=== PATIENT | male | born 1985 | race Caucasian/White ===

== ENCOUNTER 2016-11-04 18:04 | Inpatient (IN) | payer OTHER ==
[~2016-11-04] VITALS: Ht 188 cm; Wt 87.6 kg
[~2016-11-04 18:04] MED LIST: LIBRIUM25 MG PO; THIAMINE HCL100 MG PO
[2016-11-04 18:44] LABS: CHLORIDE 107 mEq/L (99-109); POTASSIUM 4.1 mEq/L (3.7-5.4); SODIUM 145 mEq/L (136-147)
[2016-11-04 18:47] LABS: ANION GAP 18 MEQ/L (2-14)
[2016-11-04 18:49] LABS: SERUM ETHYL ALCOHOL < 10 mg/dL
[2016-11-04 18:50] LABS: GFR ESTIMATE (CALCULATED) 15 mL/min/; MCH 30.7 PG (29.0-34.0); MCHC 32.2 G/DL (30.0-36.0); MEAN PLAT.VOLUME 9.5 uM^3 (9.0-12.4); PLATELET COUNT 158 K/uL (156-360); RBC DIS.WIDTH-CV 12.8 % (11.8-14.6); RBC DIS.WIDTH-SD 43.3 % (39-53); RED BLOOD COUNT 5.25 M/uL (4.00-5.50); WHITE BLOOD COUNT 4.5 K/uL (4.1-10.2)
[2016-11-04 18:53] LABS: SALICYLATE < 5.0 MG/DL (15-30)
[2016-11-04 18:54] LABS: MCV 95.2 FL (86-99)
[2016-11-04 18:57] LABS: ADD MIUA? YES; BILIRUBIN SMALL; BLOOD LARGE; COLOR DK YELLOW ((YELLOW)); GLUCOSE (STRIP) NEGATIVE; KETONES TRACE; LEUKOCYTES NEGATIVE; NITRITE NEGATIVE; PROTEIN (STRIP) 30; SPECIFIC GRAVITY 1.028 (1.000-1.030); UROBILINOGEN 0.2 MG/DL (0.2-1.0)
[2016-11-04 19:04] LABS: GLUCOSE 70 mg/dL (70-99); UREA NITROGEN (BUN) 30 mg/dL (9-23)
[2016-11-04 19:36] LABS: CREATINE KINASE 17859 IU/L (1-294)
[2016-11-04 19:36] LABS: BACTERIA 1+; CASTS PRESENT /LPF; CRYSTALS NONE SEEN; EPITHELIAL CELLS 1+; FINE GRANULAR CASTS 0-5 /LPF; MUCUS 4+; UCUL ADDED? NO; WHITE BLOOD CELLS 0-5 /HPF (0-5)
[2016-11-04 20:04] LABS: ADD MEDTOX COMMENT Y; AMPHETAMINE NEGATIVE (500 ng/mL); BARBITURATES NEGATIVE (200 ng/mL); BENZODIAZEPINES PRESUMPTIVE POSITIVE (150 ng/mL); COCAINE PRESUMPTIVE POSITIVE (150 ng/mL); INTERNAL CONTROLS VALID? YES; METHADONE PRESUMPTIVE POSITIVE (200 ng/mL); METHAMPHETAMINE NEGATIVE (500 ng/mL); OPIATES (MORPHINE) NEGATIVE (100 ng/mL); OXYCODONE NEGATIVE (100 ng/mL); PHENCYCLIDINE NEGATIVE (25 ng/mL); PROPOXYPHENE NEGATIVE (300 ng/mL); THC CANNABINOIDS NEGATIVE (50 ng/mL); TRICYCLIC ANTIDEPRESSANTS NEGATIVE (300 ng/mL)
[2016-11-04 20:04] LABS: ALKALINE PHOSPHATASE 51 IU/L (3-129)
[2016-11-04 20:06] LABS: DIRECT BILIRUBIN 0.3 mg/dL (0.0-0.3)
[2016-11-04 20:11] LABS: TOTAL BILIRUBIN 0.9 mg/dL (0.0-1.0)
[2016-11-04 20:15] LABS: BASE EXCESS -8.3 mEq/L (-3 to +3); BICARBONATE 22.4 mEq/L (22-26); COMMENTS - BLOOD GASES A+C+; DEVICE 840; FI02 100 %; MECHANICAL RATE 12 resp/min; METHEMOGLOBIN 0.9 % (0-1.5); MODE A/C; PCO2 69 mm Hg (35-45); PEEP 5 CM/H20; PO2 72 mm Hg (80-100); SITE LR; TIDAL VOLUME 400 ML
[2016-11-04 20:16] LABS: pH 7.12 (7.35-7.45)
[2016-11-04 20:44] LABS: BENZODIAZEPINES, URINE SCREEN POSITIVE (200 ng/mL)
[2016-11-04 21:38] LABS: BASE EXCESS -6.8 mEq/L (-3 to +3); BICARBONATE 23.5 mEq/L (22-26); CARBOXY HGB 2.2 % (0-5); COMMENTS - BLOOD GASES A+C+; PCO2 69 mm Hg (35-45); PO2 45 mm Hg (80-100); SITE RR; pH 7.14 (7.35-7.45)
[2016-11-04 21:39] LABS: DEVICE VENT; FI02 80 %; MECHANICAL RATE 16 resp/min; MODE AC; PEEP 5 CM/H20; TIDAL VOLUME 400 ML; TOTAL RESP RATE 30 resp/min
[2016-11-05] VITALS (27 sets, daily range): BP systolic 94–142; BP diastolic 54–92
[2016-11-05 00:32] LABS: BICARBONATE 21.9 mEq/L (22-26); CARBOXY HGB 2.3 % (0-5); COMMENTS - BLOOD GASES C+A+; DEVICE VENTILATOR; FI02 100 %; METHEMOGLOBIN 1.3 % (0-1.5); PCO2 51 mm Hg (35-45); PO2 71 mm Hg (80-100); SITE RB
[2016-11-05 00:33] LABS: INSPIRATION TIME 0.6 seconds; MECHANICAL RATE 30 resp/min; MODE AC VC+; PEEP 10 CM/H20; TIDAL VOLUME 400 ML; TOTAL RESP RATE 37 resp/min; pH 7.24 (7.35-7.45)
[2016-11-05 00:56] LABS: HEMATOCRIT 43.4 % (38.0-50.0); MCH 31.2 PG (29.0-34.0); MCHC 33.2 G/DL (30.0-36.0); MCV 93.9 FL (86-99); RBC DIS.WIDTH-CV 12.7 % (11.8-14.6); RBC DIS.WIDTH-SD 42.4 % (39-53); RED BLOOD COUNT 4.62 M/uL (4.00-5.50); WHITE BLOOD COUNT 5.1 K/uL (4.1-10.2)
[2016-11-05 00:58] LABS: EOSINOPHIL (%) 0 % (0-5); IMMATURE GRANULOCYTE (%) 0.4 % (0.0-0.7); IMMATURE GRANULOCYTE COUNT 0.2 K/uL; LYMPHOCYTE COUNT 1.1 K/uL (1.0-2.8); MONOCYTE (%) 3.6 % (3-12); MONOCYTE COUNT 0.2 K/uL (0-0.8); NEUTROPHIL (%) 75.3 % (45-76); NEUTROPHIL COUNT 3.8 K/uL (1.8-6.4)
[2016-11-05 01:05] LABS: CHLORIDE 112 mEq/L (99-109); SODIUM 144 mEq/L (136-147)
[2016-11-05 01:06] LABS: MAGNESIUM 1.6 mg/dL (1.3-2.7)
[2016-11-05 01:07] LABS: GLUCOSE 75 mg/dL (70-99)
[2016-11-05 01:08] LABS: ANION GAP 12 MEQ/L (2-14)
[2016-11-05 01:10] LABS: POTASSIUM 5.1 mEq/L (3.7-5.4)
[2016-11-05 01:11] LABS: GFR ESTIMATE (CALCULATED) 19 mL/min/
[2016-11-05 01:12] LABS: UREA NITROGEN (BUN) 32 mg/dL (9-23)
[2016-11-05 01:42] LABS: METH RESISTANT S AUREUS PCR NEGATIVE (NEGATIVE)
[2016-11-05 01:46] LABS: PROBE CHECK PASS; SPECIMEN PROCESSING CONTROL PASS
[2016-11-05 02:03] LABS: CREATINE KINASE 38419 IU/L (1-294)
[2016-11-05 02:15] LABS: USER ID SLU
[2016-11-05 02:17] LABS: PLATELET COUNT UNABLE TO REPORT K/uL (156-360)
[2016-11-05 05:47] LABS: HEMATOCRIT 43.3 % (38.0-50.0); MCH 31.6 PG (29.0-34.0); MCV 95.6 FL (86-99); RBC DIS.WIDTH-SD 45.4 % (39-53); RED BLOOD COUNT 4.53 M/uL (4.00-5.50); WHITE BLOOD COUNT 4.3 K/uL (4.1-10.2)
[2016-11-05 06:09] LABS: INTER. NORMALIZED RATIO 1.6; PROTHROMBIN TIME 16.5 (9.2-11.2)
[2016-11-05 06:24] LABS: EOSINOPHIL (%) 0 % (0-5); IMMATURE GRANULOCYTE (%) 0.9 % (0.0-0.7); LYMPHOCYTE COUNT 0.8 K/uL (1.0-2.8); MONOCYTE (%) 2.3 % (3-12); MONOCYTE COUNT 0.1 K/uL (0-0.8); NEUTROPHIL (%) 77.3 % (45-76); NEUTROPHIL COUNT 3.3 K/uL (1.8-6.4)
[2016-11-05 06:30] LABS: ANION GAP 12 MEQ/L (2-14); CHLORIDE 111 MEQ/L (99-109); GFR ESTIMATE (CALCULATED) 19 mL/min/; GLUCOSE 58 mg/dL (70-99); MAGNESIUM 1.5 mg/dl (1.3-2.7); POTASSIUM 5.2 MEQ/L (3.7-5.4); SAMPLE HEMOLYSIS CHECK 0; SAMPLE ICTERIC CHECK 0; SAMPLE LIPEMIA CHECK 0; SODIUM 144 MEQ/L (136-147); UREA NITROGEN (BUN) 36 mg/dL (9-23)
[2016-11-05 06:47] LABS: HEMATOLOGY COMMENT 1 SMEAR COMPATIBLE; MEAN PLAT.VOLUME 10.4 uM^3 (9.0-12.4); PLAT.SUFFICIENCY DECREASED; USER ID CCL
[2016-11-05 06:51] LABS: PLATELET COUNT 101 K/uL (156-360)
[2016-11-05 07:46] LABS: CREATINE KINASE 43110 IU/L (1-294)
[2016-11-05 12:42] LABS: BASE EXCESS -7.7 mEq/L (-3 to +3); BICARBONATE 18.8 mEq/L (22-26); CARBOXY HGB 1.4 % (0-5); COMMENTS - BLOOD GASES A+C+; DEVICE 840; FI02 70 %; MECHANICAL RATE 30 resp/min; METHEMOGLOBIN 1.8 % (0-1.5); MODE A/C; PCO2 41 mm Hg (35-45); PO2 164 mm Hg (80-100); SITE LR; TOTAL RESP RATE 30 resp/min
[2016-11-05 12:43] LABS: INSPIRATION TIME 0.6 seconds; PEEP 10 CM/H20; TIDAL VOLUME 500 ML; pH 7.27 (7.35-7.45)
[2016-11-05 12:57] LABS: MCH 29.7 PG (29.0-34.0); MCHC 31.4 G/DL (30.0-36.0); MCV 94.7 FL (86-99); MEAN PLAT.VOLUME 10.7 uM^3 (9.0-12.4); PLATELET COUNT 99 K/uL (156-360); RBC DIS.WIDTH-CV 13.1 % (11.8-14.6); RBC DIS.WIDTH-SD 45.3 % (39-53); RED BLOOD COUNT 4.54 M/uL (4.00-5.50)
[2016-11-05 13:02] LABS: WHITE BLOOD COUNT 8.9 K/uL (4.1-10.2)
[2016-11-05 15:20] LABS: CREATINE KINASE 40320 IU/L (1-294)
[2016-11-05 15:24] LABS: HEMATOLOGY COMMENT 1 SMEAR COMPATIBLE
[2016-11-05 15:25] LABS: ADD MIUA? YES; BILIRUBIN SMALL; BLOOD LARGE; COLOR DK YELLOW ((YELLOW)); GLUCOSE (STRIP) NEGATIVE; KETONES TRACE; LEUKOCYTES NEGATIVE; NITRITE NEGATIVE; PH, URINE 5.5 (5-8); PROTEIN (STRIP) 100; SPECIFIC GRAVITY 1.017 (1.000-1.030); UROBILINOGEN 0.2 MG/DL (0.2-1.0)
[2016-11-05 15:25] LABS: EOSINOPHIL (%) 0.2 % (0-5); IMMATURE GRANULOCYTE (%) 4.5 % (0.0-0.7); IMMATURE GRANULOCYTE COUNT 0.4 K/uL; LYMPHOCYTE COUNT 0.4 K/uL (1.0-2.8); MONOCYTE (%) 2.1 % (3-12); MONOCYTE COUNT 0.2 K/uL (0-0.8); NEUTROPHIL (%) 88.8 % (45-76); NEUTROPHIL COUNT 7.9 K/uL (1.8-6.4)
[2016-11-05 15:31] LABS: BACTERIA NONE SEEN; CASTS NONE SEEN /LPF; CRYSTALS NONE SEEN; EPITHELIAL CELLS NONE SEEN; MUCUS NONE SEEN; RED BLOOD CELLS 20-30 /HPF (0-5); UBAC NUMBER 15.1; UEPI NUMBER 1.1; UWBC NUMBER 1.7; WHITE BLOOD CELLS NONE SEEN /HPF (0-5)
[2016-11-05 17:13] LABS: CHLORIDE 113 MEQ/L (99-109); GFR ESTIMATE (CALCULATED) 19 mL/min/; GLUCOSE 70 mg/dL (70-99); MAGNESIUM 1.4 mg/dl (1.3-2.7); POTASSIUM 5.6 MEQ/L (3.7-5.4); SODIUM 143 MEQ/L (136-147); UREA NITROGEN (BUN) 38 mg/dL (9-23)
[2016-11-05 17:42] LABS: HEMATOCRIT 41.2 % (38.0-50.0); MCH 30.6 PG (29.0-34.0); MCV 92.8 FL (86-99); MEAN PLAT.VOLUME 10.8 uM^3 (9.0-12.4); PLATELET COUNT 82 K/uL (156-360); RBC DIS.WIDTH-CV 13.1 % (11.8-14.6); RBC DIS.WIDTH-SD 44.6 % (39-53); RED BLOOD COUNT 4.44 M/uL (4.00-5.50); WHITE BLOOD COUNT 11.2 K/uL (4.1-10.2)
[2016-11-05 18:11] LABS: CHLORIDE 109 MEQ/L (99-109); GFR ESTIMATE (CALCULATED) 18 mL/min/; GLUCOSE 141 mg/dL (70-99); MAGNESIUM 1.8 mg/dl (1.3-2.7); POTASSIUM 4.7 MEQ/L (3.7-5.4); SODIUM 142 MEQ/L (136-147); UREA NITROGEN (BUN) 44 mg/dL (9-23)
[2016-11-05 18:12] LABS: POINT-OF-CARE METER ID UU14162636
[2016-11-05 18:16] LABS: ANION GAP 10 MEQ/L (2-14); SAMPLE HEMOLYSIS CHECK 0; SAMPLE ICTERIC CHECK 0; SAMPLE LIPEMIA CHECK 0
[2016-11-05 18:57] LABS: CREATINE KINASE 35860 IU/L (1-294)
[2016-11-05 19:55] LABS: EOSINOPHIL (%) 0.4 % (0-5); HEMATOLOGY COMMENT 1 SMEAR COMPATIBLE; IMMATURE GRANULOCYTE (%) 10.5 % (0.0-0.7); IMMATURE GRANULOCYTE COUNT 1.2 K/uL; LYMPHOCYTE COUNT 0.5 K/uL (1.0-2.8); MONOCYTE COUNT 0.1 K/uL (0-0.8); NEUTROPHIL (%) 83.6 % (45-76); NEUTROPHIL COUNT 9.3 K/uL (1.8-6.4)
[2016-11-05 21:37] LABS: BASE EXCESS 0.1 mEq/L (-3 to +3); CARBOXY HGB 2.3 % (0-5); METHEMOGLOBIN 1.7 % (0-1.5); PCO2 39 mm Hg (35-45)
[2016-11-05 21:38] LABS: BICARBONATE 24.7 mEq/L (22-26); COMMENTS - BLOOD GASES C+A+; DEVICE VENTILATOR; FI02 40 %; INSPIRATION TIME 0.6 seconds; MECHANICAL RATE 30 resp/min; MODE AC VC+; PEEP 10 CM/H20; PO2 65 mm Hg (80-100); SITE RB; TIDAL VOLUME 500 ML; TOTAL RESP RATE 37 resp/min; pH 7.41 (7.35-7.45)
[2016-11-06] VITALS (24 sets, daily range): BP systolic 121–143; BP diastolic 78–93
[2016-11-06 00:03] LABS: POINT-OF-CARE METER ID UU14174217
[2016-11-06 05:39] LABS: POINT-OF-CARE METER ID UU13113748
[2016-11-06 05:59] LABS: HEMATOCRIT 37.7 % (38.0-50.0); MCH 30.6 PG (29.0-34.0); MCHC 33.7 G/DL (30.0-36.0); MCV 90.8 FL (86-99); MEAN PLAT.VOLUME 10.7 uM^3 (9.0-12.4); PLATELET COUNT 84 K/uL (156-360); RBC DIS.WIDTH-CV 13.1 % (11.8-14.6); RBC DIS.WIDTH-SD 43.2 % (39-53); RED BLOOD COUNT 4.15 M/uL (4.00-5.50)
[2016-11-06 06:15] LABS: EOSINOPHIL (%) 0.1 % (0-5); IMMATURE GRANULOCYTE (%) 0.3 % (0.0-0.7); LYMPHOCYTE COUNT 0.7 K/uL (1.0-2.8); MONOCYTE (%) 1.8 % (3-12); MONOCYTE COUNT 0.2 K/uL (0-0.8)
[2016-11-06 06:49] LABS: ANION GAP 12 MEQ/L (2-14); CHLORIDE 102 MEQ/L (99-109); GFR ESTIMATE (CALCULATED) 16 mL/min/; GLUCOSE 140 mg/dL (70-99); POTASSIUM 3.9 MEQ/L (3.7-5.4); SAMPLE HEMOLYSIS CHECK 0; SAMPLE ICTERIC CHECK 0; SAMPLE LIPEMIA CHECK 0; SODIUM 142 MEQ/L (136-147); UREA NITROGEN (BUN) 52 mg/dL (9-23)
[2016-11-06 06:50] LABS: MAGNESIUM 2.5 mg/dl (1.3-2.7)
[2016-11-06 07:37] LABS: CREATINE KINASE 36630 IU/L (1-294)
[2016-11-06 10:22] LABS: BASE EXCESS 9.8 mEq/L (-3 to +3); BICARBONATE 33.4 mEq/L (22-26); CARBOXY HGB 2.2 % (0-5); COMMENTS - BLOOD GASES A+C+; DEVICE VENT; METHEMOGLOBIN 1.6 % (0-1.5); PCO2 40 mm Hg (35-45); PO2 102 mm Hg (80-100); SITE LR; pH 7.53 (7.35-7.45)
[2016-11-06 10:23] LABS: FI02 40 %; MECHANICAL RATE 20 resp/min; MODE ACPC; PRESSURE CONTROL VENTILATION 15 CM H20; TOTAL RESP RATE 22 resp/min
[2016-11-06 10:24] LABS: PEEP 10 CM/H20
[2016-11-06 11:22] LABS: POINT-OF-CARE METER ID UU13113748
[2016-11-06 13:42] LABS: BASE EXCESS 11.7 mEq/L (-3 to +3); BICARBONATE 34.9 mEq/L (22-26); METHEMOGLOBIN 1.4 % (0-1.5); PCO2 39 mm Hg (35-45); PO2 101 mm Hg (80-100)
[2016-11-06 13:43] LABS: COMMENTS - BLOOD GASES A+C+; SITE LR
[2016-11-06 13:44] LABS: DEVICE VENT; FI02 40 %; MECHANICAL RATE 20 resp/min; MODE ACPC; PEEP 10 CM/H20; PRESSURE CONTROL VENTILATION 15 CM H20; TOTAL RESP RATE 25 resp/min
[2016-11-06 13:45] LABS: pH 7.56 (7.35-7.45)
[2016-11-06 17:35] LABS: BASE EXCESS 13.3 mEq/L (-3 to +3); BICARBONATE 36.6 mEq/L (22-26); CARBOXY HGB 2.5 % (0-5); METHEMOGLOBIN 1.7 % (0-1.5); PCO2 40 mm Hg (35-45)
[2016-11-06 17:36] LABS: COMMENTS - BLOOD GASES A+C+; DEVICE VENT; PO2 68 mm Hg (80-100); SITE LR
[2016-11-06 17:37] LABS: FI02 30 %; INSPIRATION TIME 0.6 seconds; MECHANICAL RATE 14 resp/min; MODE AC PC; PEEP 10 CM/H20; PRESSURE CONTROL VENTILATION 10 CM H20; TOTAL RESP RATE 27 resp/min; pH 7.57 (7.35-7.45)
[2016-11-06 18:04] LABS: POINT-OF-CARE METER ID UU13113748
[2016-11-06 18:18] LABS: HEMATOCRIT 32.4 % (38.0-50.0); MCH 30.9 PG (29.0-34.0); MCHC 34.3 G/DL (30.0-36.0); MCV 90.3 FL (86-99); PLATELET COUNT 59 K/uL (156-360); RBC DIS.WIDTH-SD 42.7 % (39-53); RED BLOOD COUNT 3.59 M/uL (4.00-5.50); WHITE BLOOD COUNT 9.5 K/uL (4.1-10.2)
[2016-11-06 18:58] LABS: ANION GAP 9 MEQ/L (2-14); CHLORIDE 101 MEQ/L (99-109); GFR ESTIMATE (CALCULATED) 16 mL/min/; GLUCOSE 118 mg/dL (70-99); MAGNESIUM 2.2 mg/dl (1.3-2.7); POTASSIUM 3.3 MEQ/L (3.7-5.4); SAMPLE HEMOLYSIS CHECK 0; SAMPLE ICTERIC CHECK 0; SAMPLE LIPEMIA CHECK 0; SODIUM 142 MEQ/L (136-147); UREA NITROGEN (BUN) 51 mg/dL (9-23)
[2016-11-06 19:01] LABS: EOSINOPHIL (%) 0.1 % (0-5); HEMATOLOGY COMMENT 1 SMEAR COMPATIBLE; IMMATURE GRANULOCYTE (%) 0.5 % (0.0-0.7); IMMATURE GRANULOCYTE COUNT 0.1 K/uL; LYMPHOCYTE COUNT 0.7 K/uL (1.0-2.8); MONOCYTE (%) 1.8 % (3-12); MONOCYTE COUNT 0.2 K/uL (0-0.8); NEUTROPHIL (%) 90.3 % (45-76); NEUTROPHIL COUNT 8.6 K/uL (1.8-6.4); PLAT.SUFFICIENCY DECREASED
[2016-11-06 19:06] LABS: CREATINE KINASE 18435 IU/L (1-294)
[2016-11-06 23:38] LABS: POINT-OF-CARE METER ID UU13113748
[2016-11-07] VITALS (23 sets, daily range): BP systolic 114–153; BP diastolic 71–101
[2016-11-07 05:29] LABS: HEMATOCRIT 31.3 % (38.0-50.0); MCH 30.9 PG (29.0-34.0); MCHC 33.9 G/DL (30.0-36.0); MCV 91.3 FL (86-99); MEAN PLAT.VOLUME 10.6 uM^3 (9.0-12.4); PLATELET COUNT 55 K/uL (156-360); RBC DIS.WIDTH-CV 13.1 % (11.8-14.6); RBC DIS.WIDTH-SD 43.7 % (39-53); RED BLOOD COUNT 3.43 M/uL (4.00-5.50); WHITE BLOOD COUNT 7.8 K/uL (4.1-10.2)
[2016-11-07 05:42] LABS: EOSINOPHIL (%) 0.1 % (0-5); IMMATURE GRANULOCYTE (%) 1.4 % (0.0-0.7); IMMATURE GRANULOCYTE COUNT 0.1 K/uL; LYMPHOCYTE COUNT 0.8 K/uL (1.0-2.8); MONOCYTE (%) 2.9 % (3-12); MONOCYTE COUNT 0.2 K/uL (0-0.8); NEUTROPHIL (%) 85.7 % (45-76); NEUTROPHIL COUNT 6.7 K/uL (1.8-6.4)
[2016-11-07 05:59] LABS: ANION GAP 10 MEQ/L (2-14); CHLORIDE 103 MEQ/L (99-109); GFR ESTIMATE (CALCULATED) 14 mL/min/; GLUCOSE 104 mg/dL (70-99); MAGNESIUM 2.2 mg/dl (1.3-2.7); POTASSIUM 3.5 MEQ/L (3.7-5.4); SAMPLE HEMOLYSIS CHECK 0; SAMPLE ICTERIC CHECK 0; SAMPLE LIPEMIA CHECK 0; SODIUM 144 MEQ/L (136-147); UREA NITROGEN (BUN) 60 mg/dL (9-23)
[2016-11-07 06:09] LABS: CREATINE KINASE 15320 IU/L (1-294)
[2016-11-07 09:35] LABS: ALKALINE PHOSPHATASE 82 IU/L (3-129); DIRECT BILIRUBIN 0.3 mg/dL (0.0-0.3); TOTAL BILIRUBIN 1.3 MG/DL (0.0-1.0)
[2016-11-07 12:33] LABS: POINT-OF-CARE METER ID UU13113731
[2016-11-07 18:41] LABS: POINT-OF-CARE METER ID UU13113731
[2016-11-07 18:45] LABS: EOSINOPHIL (%) 0 % (0-5); HEMATOCRIT 30.2 % (38.0-50.0); IMMATURE GRANULOCYTE (%) 0.4 % (0.0-0.7); LYMPHOCYTE COUNT 0.6 K/uL (1.0-2.8); MCH 30.3 PG (29.0-34.0); MCHC 33.4 G/DL (30.0-36.0); MCV 90.7 FL (86-99); MEAN PLAT.VOLUME 10.9 uM^3 (9.0-12.4); MONOCYTE (%) 15.9 % (3-12); MONOCYTE COUNT 1.2 K/uL (0-0.8); NEUTROPHIL (%) 76.2 % (45-76); PLATELET COUNT 54 K/uL (156-360); RBC DIS.WIDTH-CV 13.4 % (11.8-14.6); RBC DIS.WIDTH-SD 44.5 % (39-53); RED BLOOD COUNT 3.33 M/uL (4.00-5.50); WHITE BLOOD COUNT 7.8 K/uL (4.1-10.2)
[2016-11-07 19:26] LABS: ANION GAP 12 MEQ/L (2-14); CHLORIDE 103 MEQ/L (99-109); GFR ESTIMATE (CALCULATED) 13 mL/min/; GLUCOSE 107 mg/dL (70-99); MAGNESIUM 2.2 mg/dl (1.3-2.7); POTASSIUM 3.9 MEQ/L (3.7-5.4); SAMPLE HEMOLYSIS CHECK 0; SAMPLE ICTERIC CHECK 0; SAMPLE LIPEMIA CHECK 0; SODIUM 143 MEQ/L (136-147); UREA NITROGEN (BUN) 66 mg/dL (9-23)
[2016-11-07 19:28] LABS: CREATINE KINASE 15065 IU/L (1-294)
[2016-11-08] VITALS (24 sets, daily range): BP systolic 112–141; BP diastolic 69–92
[2016-11-08 05:07] LABS: HEMATOCRIT 29.8 % (38.0-50.0); MCH 30.6 PG (29.0-34.0); MCHC 33.6 G/DL (30.0-36.0); MCV 91.1 FL (86-99); MEAN PLAT.VOLUME 9.9 uM^3 (9.0-12.4); PLATELET COUNT 54 K/uL (156-360); RBC DIS.WIDTH-SD 42.1 % (39-53); RED BLOOD COUNT 3.27 M/uL (4.00-5.50); WHITE BLOOD COUNT 8.2 K/uL (4.1-10.2)
[2016-11-08 05:17] LABS: EOSINOPHIL (%) 1.8 % (0-5); EOSINOPHIL COUNT 0.2 K/uL (0-0.3); IMMATURE GRANULOCYTE (%) 0.5 % (0.0-0.7); IMMATURE GRANULOCYTE COUNT 0.4 K/uL; LYMPHOCYTE COUNT 1.1 K/uL (1.0-2.8); MONOCYTE (%) 16.4 % (3-12); MONOCYTE COUNT 1.4 K/uL (0-0.8); NEUTROPHIL (%) 67.8 % (45-76); NEUTROPHIL COUNT 5.6 K/uL (1.8-6.4)
[2016-11-08 05:28] LABS: CHLORIDE 107 mEq/L (99-109); POTASSIUM 3.7 mEq/L (3.7-5.4); SODIUM 144 mEq/L (136-147)
[2016-11-08 05:30] LABS: GLUCOSE 96 mg/dL (70-99); MAGNESIUM 2.2 mg/dL (1.3-2.7)
[2016-11-08 05:32] LABS: ANION GAP 11 MEQ/L (2-14)
[2016-11-08 05:34] LABS: GFR ESTIMATE (CALCULATED) 11 mL/min/
[2016-11-08 05:35] LABS: UREA NITROGEN (BUN) 74 mg/dL (9-23)
[2016-11-08 05:59] LABS: HEMATOLOGY COMMENT 1 SMEAR COMPATIBLE; USER ID WCD
[2016-11-08 06:48] LABS: CREATINE KINASE 12282 IU/L (1-294)
[2016-11-08 13:01] LABS: POINT-OF-CARE METER ID UU13113731
[2016-11-08 18:22] LABS: HEMATOCRIT 28.9 % (38.0-50.0); MCH 30.3 PG (29.0-34.0); MCHC 33.2 G/DL (30.0-36.0); MCV 91.2 FL (86-99); RBC DIS.WIDTH-CV 13.8 % (11.8-14.6); RBC DIS.WIDTH-SD 45.9 % (39-53); RED BLOOD COUNT 3.17 M/uL (4.00-5.50)
[2016-11-08 18:23] LABS: POINT-OF-CARE METER ID UU13113731
[2016-11-08 18:38] LABS: EOSINOPHIL (%) 0.8 % (0-5); EOSINOPHIL COUNT 0.1 K/uL (0-0.3); IMMATURE GRANULOCYTE (%) 0.3 % (0.0-0.7); LYMPHOCYTE COUNT 0.9 K/uL (1.0-2.8); MONOCYTE (%) 20.8 % (3-12); MONOCYTE COUNT 1.9 K/uL (0-0.8); NEUTROPHIL (%) 68.5 % (45-76); NEUTROPHIL COUNT 6.1 K/uL (1.8-6.4); PLATELET COUNT 50 K/uL (156-360)
[2016-11-08 18:54] LABS: ANION GAP 11 MEQ/L (2-14); CHLORIDE 107 MEQ/L (99-109); GFR ESTIMATE (CALCULATED) 11 mL/min/; GLUCOSE 98 mg/dL (70-99); MAGNESIUM 2.4 mg/dl (1.3-2.7); POTASSIUM 3.7 MEQ/L (3.7-5.4); SAMPLE HEMOLYSIS CHECK 0; SAMPLE ICTERIC CHECK 0; SAMPLE LIPEMIA CHECK 0; SODIUM 145 MEQ/L (136-147); UREA NITROGEN (BUN) 79 mg/dL (9-23)
[2016-11-08 19:09] LABS: CREATINE KINASE 9407 IU/L (1-294)
[2016-11-08 23:36] LABS: POINT-OF-CARE METER ID UU13113748
[2016-11-09] VITALS (23 sets, daily range): BP systolic 109–150; BP diastolic 66–98
[2016-11-09 05:29] LABS: HEMATOCRIT 28.9 % (38.0-50.0); MCH 30.7 PG (29.0-34.0); MCHC 33.6 G/DL (30.0-36.0); MCV 91.5 FL (86-99); MEAN PLAT.VOLUME 11.5 uM^3 (9.0-12.4); PLATELET COUNT 63 K/uL (156-360); RBC DIS.WIDTH-CV 13.7 % (11.8-14.6); RBC DIS.WIDTH-SD 45.7 % (39-53); RED BLOOD COUNT 3.16 M/uL (4.00-5.50); WHITE BLOOD COUNT 10.3 K/uL (4.1-10.2)
[2016-11-09 06:11] LABS: ANION GAP 12 MEQ/L (2-14); CHLORIDE 105 MEQ/L (99-109); GFR ESTIMATE (CALCULATED) 11 mL/min/; GLUCOSE 90 mg/dL (70-99); MAGNESIUM 2.4 mg/dl (1.3-2.7); POTASSIUM 3.5 MEQ/L (3.7-5.4); SAMPLE HEMOLYSIS CHECK 0; SAMPLE ICTERIC CHECK 0; SAMPLE LIPEMIA CHECK 0; SODIUM 143 MEQ/L (136-147); UREA NITROGEN (BUN) 83 mg/dL (9-23)
[2016-11-09 06:31] LABS: CREATINE KINASE 8869 IU/L (1-294)
[2016-11-09 06:32] LABS: POINT-OF-CARE METER ID UU14174217; POINT-OF-CARE USER ID ENVSME70
[2016-11-09 06:49] LABS: EOSINOPHIL (%) 0.9 % (0-5); EOSINOPHIL COUNT 0.1 K/uL (0-0.3); IMMATURE GRANULOCYTE (%) 0.5 % (0.0-0.7); IMMATURE GRANULOCYTE COUNT 0.1 K/uL; LYMPHOCYTE COUNT 1.8 K/uL (1.0-2.8); MONOCYTE (%) 9.1 % (3-12); MONOCYTE COUNT 0.9 K/uL (0-0.8); NEUTROPHIL (%) 72.3 % (45-76); NEUTROPHIL COUNT 7.5 K/uL (1.8-6.4)
[2016-11-09 13:07] LABS: POINT-OF-CARE METER ID UU14174217
[2016-11-09 17:24] LABS: POINT-OF-CARE METER ID UU14174217
[2016-11-09 18:37] LABS: HEMATOCRIT 29.1 % (38.0-50.0); MCH 30.7 PG (29.0-34.0); MCV 90.1 FL (86-99); MEAN PLAT.VOLUME 10.5 uM^3 (9.0-12.4); PLATELET COUNT 76 K/uL (156-360); RBC DIS.WIDTH-CV 13.8 % (11.8-14.6); RBC DIS.WIDTH-SD 45.7 % (39-53); RED BLOOD COUNT 3.23 M/uL (4.00-5.50); WHITE BLOOD COUNT 13.2 K/uL (4.1-10.2)
[2016-11-09 19:09] LABS: EOSINOPHIL (%) 1.4 % (0-5); EOSINOPHIL COUNT 0.2 K/uL (0-0.3); IMMATURE GRANULOCYTE (%) 0.6 % (0.0-0.7); IMMATURE GRANULOCYTE COUNT 0.1 K/uL; MONOCYTE COUNT 1.8 K/uL (0-0.8); NEUTROPHIL (%) 76.7 % (45-76); NEUTROPHIL COUNT 10.1 K/uL (1.8-6.4)
[2016-11-09 19:15] LABS: ANION GAP 13 MEQ/L (2-14); CHLORIDE 105 MEQ/L (99-109); GFR ESTIMATE (CALCULATED) 10 mL/min/; GLUCOSE 95 mg/dL (70-99); MAGNESIUM 2.4 mg/dl (1.3-2.7); POTASSIUM 3.8 MEQ/L (3.7-5.4); SAMPLE HEMOLYSIS CHECK 0; SAMPLE ICTERIC CHECK 0; SAMPLE LIPEMIA CHECK 0; SODIUM 141 MEQ/L (136-147); UREA NITROGEN (BUN) 89 mg/dL (9-23)
[2016-11-09 19:17] LABS: CREATINE KINASE 8319 IU/L (1-294)
[2016-11-10] VITALS (17 sets, daily range): BP systolic 114–157; BP diastolic 68–104
[2016-11-10 00:31] LABS: POINT-OF-CARE METER ID UU13113748
[2016-11-10 04:52] LABS: HEMATOCRIT 30.8 % (38.0-50.0); MCH 30.2 PG (29.0-34.0); MCHC 33.8 G/DL (30.0-36.0); MCV 89.5 FL (86-99); MEAN PLAT.VOLUME 11.4 uM^3 (9.0-12.4); PLATELET COUNT 100 K/uL (156-360); RBC DIS.WIDTH-CV 13.4 % (11.8-14.6); RBC DIS.WIDTH-SD 42.7 % (39-53); RED BLOOD COUNT 3.44 M/uL (4.00-5.50); WHITE BLOOD COUNT 17.7 K/uL (4.1-10.2)
[2016-11-10 05:05] LABS: CHLORIDE 105 mEq/L (99-109); POTASSIUM 3.9 mEq/L (3.7-5.4); SODIUM 139 mEq/L (136-147)
[2016-11-10 05:07] LABS: GLUCOSE 104 mg/dL (70-99)
[2016-11-10 05:08] LABS: ANION GAP 15 MEQ/L (2-14)
[2016-11-10 05:10] LABS: GFR ESTIMATE (CALCULATED) 10 mL/min/
[2016-11-10 05:13] LABS: UREA NITROGEN (BUN) 99 mg/dL (9-23)
[2016-11-10 05:54] LABS: POINT-OF-CARE USER ID ENVSME70
== END 2016-11-10 18:21 | DRG 917 ==
LOC: EME 18:04 → EDBD 18:04 → EME 18:04 → EDOF 23:21 → 4WEST 23:21
PROVIDERS: Emergency Medicine; Internal Medicine Critical Care Medicine; Internal Medicine Nephrology
PROC: 5A1955Z Respiratory Ventilation, Greater than 96 Consecutive Hours (ICD-10-PCS; principal; 2016-11-04)
PROC: 0BH17EZ Insertion of Endotracheal Airway into Trachea, Via Natural or Artificial Opening (ICD-10-PCS; 2016-11-04)
DX: T40.3X1A Poisoning by methadone, accidental (unintentional), initial encounter (principal); T40.5X1A Poisoning by cocaine, accidental (unintentional), initial encounter; G92 Toxic encephalopathy; J96.01 Acute respiratory failure with hypoxia; M62.82 Rhabdomyolysis; N17.9 Acute kidney failure, unspecified; E87.2 Acidosis; R78.81 Bacteremia; J69.0 Pneumonitis due to inhalation of food and vomit; G93.1 Anoxic brain damage, not elsewhere classified; K72.90 Hepatic failure, unspecified without coma; F10.10 Alcohol abuse, uncomplicated; F14.10 Cocaine abuse, uncomplicated; E83.51 Hypocalcemia; F17.200 Nicotine dependence, unspecified, uncomplicated; B96.3 Hemophilus influenzae [H. influenzae] as the cause of diseases classified elsewhere; Z66 Do not resuscitate; Z51.5 Encounter for palliative care
CPT/HCPCS: 36600; 70450; 70551; 71010; 73610; 74176; 80048; 80048 91; 80053; 80076; 81003; 82040; 82550; 82550 91; 82803; 82948; 83605; 83690; 83735; 83874 90; 84100; 84999; 85025; 85025 91; 85027; 85610; 87040; 87070; 87077; 87181; 87185; 87205; 87641; 87801; 93005; 94002; 94003; 95819; 99202; 99281; 99284; 99285; G0480; J0610; J0692; J0696; J1644; J1815; J1940; J2060; J2310; J2704; J2765; J3475; J7030; J7050; J7070; J7120; S0028